=== PATIENT | male | born 1945 | race Two or more races ===

== ENCOUNTER 2019-01-05 08:34 | Outpatient (CLI) | payer OTHER | END 2019-01-05 08:45 | disposition home or self-care (01) | LOC: TOM 08:34 | DX: K56.50 Intestinal adhesions [bands], unspecified as to partial versus complete obstruction (principal); K56.600 Partial intestinal obstruction, unspecified as to cause ==

== ENCOUNTER → 2023-07-15 | Outpatient (CLI) | payer OTHER | END | disposition home or self-care (01) | LOC: RX STUDY 09:13 | PROVIDERS: ATTEND Psychiatry & Neurology Neurology | DX: R13.10 Dysphagia, unspecified (principal) ==